=== PATIENT | female | born 1970 ===

== ENCOUNTER 2020-07-04 13:56 | Outpatient (CLI) | payer OTHER ==
--- NOTE | 2020-07-05 09:08 | Mammography Report ---
DIGITAL SCREENING MAMMOGRAM WITH CAD, 07/04/2020 INDICATION: Routine screening mammography. SCREENING MAMMOGRAM TECHNIQUE: Digital bilateral 2D mammography was obtained in the craniocaudal and mediolateral obliq ue projections. This examination was interpreted with the benefit of Computer-Aided Detection analysi s. COMPARISON: None FINDINGS: Breast Density: The breasts are extremely dense, which lowers the sensitivity of mammography. There is no evidence of suspicious calcifications or architectural distortion in either breast. There is a 1.9 cm rounded density in the upper outer left breast approximately 7 cm from the nipple, poste rior depth. IMPRESSION: Follow up recommendation: Ultrasound Category 0: Incomplete. Needs additional imaging evaluation and/or prior mammograms for comparison. A "normal" or negative report should not discourage follow up or biopsy of a clinically significant f inding. A written summary of these findings will be mailed to the patient. The patient will be entered into a mammography reporting system which will generate a reminder letter for the patient's next appointmen t at the appropriate interval. The [employer] recommends yearly mammograms starting at age 40 and continuing as l jose raul as a woman is in good health. Breast MRI is recommended for women with an approximate 20-25% or greater lifetime risk of breast cancer, including women with a strong family history of breast or ova davian cancer or who have been treated for Hodgkin's disease. Signer Name: Yovany Moreau MD Signed: 07/05/2020 9:03 AM Workstation Name: [id number]
== END 2020-07-04 13:57 | disposition home or self-care (01) ==
LOC: SPVWC 13:56 → MERGE 13:56 → SPVWC 13:57
PROVIDERS: ATTEND Internal Medicine
DX: Z12.31 Encounter for screening mammogram for malignant neoplasm of breast (principal)
CPT/HCPCS: 77067